=== PATIENT | female | born 1970 | race Caucasian/White ===

== ENCOUNTER → 2016-11-18 | Outpatient (REF) | payer BC | LOC: M SFHCWAGY 15:00 | PROVIDERS: ATTEND Nurse Practitioner Women's Health | DX: Z12.4 Encounter for screening for malignant neoplasm of cervix (principal) ==

== ENCOUNTER → 2016-11-18 | Outpatient (CLI) | payer BC ==
--- NOTE | 2016-11-18 15:29 | REPMRS ---
Patient History The patient states she had a clinical breast exam in 11/2016. Patient is nulliparous. Family history of colorectal cancer in maternal grandfather at age 50 or over and breast cancer in maternal grandmother at age 50 or over. Taking hormonal contraceptives for 12 years. Digital Woman Screen Mammo: November 18, 2016 - Exam #: [id number] Bilateral CC and MLO view(s) were taken. Technologist: Jennifer Torres, Technologist Prior study comparison: November 15, 2015, digital woman screen mammo performed at [facility]. November 14, 2014, digital woman screen mammo performed at [facility] [employer] [facility]. FINDINGS: The breast tissue is heterogeneously dense. This may lower the sensitivity of mammography. There has been no change in the appearance of the mammogram from the prior studies. There is a moderate amount of residual fibroglandular tissue which is fairly symmetric. There is no interval development of dominant mass, areas of architectural distortion, or clustered microcalcification typical of malignancy. ASSESSMENT: BI-RADS/ACR category 1 mammogram. Negative. Recommendation Routine screening mammogram in 1 year (for women over age 40). This mammogram was interpreted with the aid of an FDA-approved computer-aided dectection system. Electronically Signed By: Nilson Fair MD 11/18/16 [id number]
== END ==
LOC: M WHC 14:28
PROVIDERS: ATTEND Nurse Practitioner Women's Health
DX: Z12.31 Encounter for screening mammogram for malignant neoplasm of breast (principal)

== ENCOUNTER → 2018-04-14 | Outpatient (CLI) | payer BC | LOC: M WHC 10:48 | DX: Z12.31 Encounter for screening mammogram for malignant neoplasm of breast (principal) | CPT/HCPCS: 77067 ==

== ENCOUNTER → 2019-04-21 | Outpatient (REF) | payer BC ==
[2019-04-23 15:06] LABS: HPV HYBRID CAPTURE II Negative (Negative)
== END ==
LOC: M SFHCWAGY 11:32
PROVIDERS: ATTEND Nurse Practitioner Family
DX: Z12.4 Encounter for screening for malignant neoplasm of cervix (principal)
CPT/HCPCS: 87624; G0123

== ENCOUNTER → 2019-04-21 | Outpatient (CLI) | payer BC ==
--- NOTE | 2019-04-21 12:11 | REPMRS ---
Patient History The patient states she had a clinical breast exam in 04/2019. Patient is nulliparous. Family history of breast cancer at age 50 or over in maternal grandmother, colorectal cancer at age 50 or over in maternal grandfather. Taking hormonal contraceptives for 14 years. 3D TOMOSYNTHESIS WAS PERFORMED. Digital Woman Screen Mammo: April 21, 2019 - Exam #: [id number] Bilateral CC and MLO view(s) were taken. Technologist: Lelo Aguilar, Technologist Prior study comparison: April 14, 2018, bilateral digital woman screen mammo performed at [facility]. November 18, 2016, digital woman screen mammo performed at [facility] [employer] [facility]. FINDINGS: The breast tissue is heterogeneously dense. This may lower the sensitivity of mammography. There has been no change in the appearance of the mammogram from the prior studies. There is a moderate amount of residual fibroglandular tissue which is fairly symmetric. There is no interval development of dominant mass, areas of architectural distortion, or clustered microcalcification typical of malignancy. Assessment: BI-RADS/ACR category 1 mammogram. Negative Mammogram. Recommendation Routine screening mammogram in 1 year (for women over age 40). This mammogram was interpreted with the aid of an FDA-approved computer-aided dectection system. THE LIFETIME RISK OF BREAST CANCER IS 20.7%, THEREFORE SUPPLEMENTAL SCREENING MRI OF THE BREASTS IS RECOMMENDED IN 6 MONTHS. Electronically Signed By: Nilson Fair MD 04/21/19 [id number]
== END ==
LOC: M WHC 10:59
PROVIDERS: ATTEND Nurse Practitioner Family
DX: Z12.31 Encounter for screening mammogram for malignant neoplasm of breast (principal)

== ENCOUNTER → 2019-10-19 | Outpatient (CLI) | payer BC ==
[~2019-10-19] MED LIST: PROHANCE 279.3MG/ML 15ML VIAL (A9576) As Ordered ONE; PROHANCE 279.3MG/ML 5ML VIAL (A9576) As Ordered ONE
--- NOTE | 2019-10-19 16:11 | REP ---
Bilateral breast MRI study without and with IV gadolinium: History: High risk breast cancer screening. Comparison mammography April 21, 2019. Technique: Three Bess MRI imaging was performed with a dedicated breast coil. Axial, coronal, and sagittal T1 and T2-weighted scans were obtained with and without fat saturation in the usual fashion. The study includes dynamically acquired post gadolinium enhanced imaging subtraction imaging. Maximal intensity projection and multiplanar re-formation imaging is included as well. The study was interpreted with the aid of ExactTargetD, an FDA approved computer-aided detection (CAD) software program, on a dedicated breast MRI work station. The gadolinium enhancement dose is 20 ml of intravenous ProHance. Findings: There is a marked pattern of fibroglandular tissue bilaterally which corresponds with the mammographic pattern of increased density. There is no evidence of axillary lymphadenopathy on either side. No internal mammary adenopathy is seen. Incidental note is made of a 1.1 cm cyst in the left lobe of the liver adjacent to the gallbladder. No significant breast cystic change is seen. High-resolution pre and postcontrast images show no suspicious morphologic abnormality in either breast. Dynamically acquired sequential post contrast images show no suspicious area of enhancement and/or washout in either breast to suggest malignancy. Subtraction images are unremarkable. Impression: BIRADS category 1 negative findings. Repeat screening breast MRI study recommended in 1 year. Annual screening mammography should be continued as well. Electronically Signed by Walter Petit MD 10/19/2019 04:53 P
== END ==
LOC: M RAD 10:12
PROVIDERS: ATTEND Nurse Practitioner Family
DX: Z91.89 Other specified personal risk factors, not elsewhere classified (principal); R92.2 Inconclusive mammogram; K76.89 Other specified diseases of liver
CPT/HCPCS: A9576; C8908

== ENCOUNTER → 2020-05-21 | Outpatient (CLI) | payer BC ==
--- NOTE | 2020-05-21 15:33 | REPMRS ---
Patient History The patient states she had a clinical breast exam in 2019. Family history of breast cancer at age 50 or over in maternal grandmother, colorectal cancer at age 50 or over in maternal grandfather. Taking hormonal contraceptives for 14 years. Digital Woman Screen Mammo: May 21, 2020 - Exam #: [id number] Bilateral CC and MLO view(s) were taken. Technologist: Jo Montana, Technologist Prior study comparison: April 21, 2019, bilateral digital woman screen mammo performed at [facility]. April 14, 2018, bilateral digital woman screen mammo performed at [facility]. November 18, 2016, digital woman screen mammo performed at [facility]. FINDINGS: There are scattered fibroglandular densities. The Volpara volumetric breast density category is:B. There has been no change in the appearance of the mammogram from the prior studies. There is a mild amount of scattered fibroglandular density which is fairly symmetric. There is no interval development of dominant mass, architectural distortion, or grouped microcalcification suggestive of malignancy. 3-D tomosynthesis shows no additional findings. Assessment: BI-RADS/ACR category 1 mammogram. Negative Mammogram. Recommendation Breast MRI of both breasts in 6 months. Routine screening mammogram of both breasts in 1 year (for women over age 40). This patient's Lifetime Breast Cancer Risk is estimated at 20.4 %. Annual screening Breast MRI scanniing is recommended for patient's whose lifetime risk assessment is over 20%. This mammogram was interpreted with the aid of an FDA-approved computer-aided dectection system. Electronically Signed By: Gautam Petit MD 05/21/20 [id number]
== END ==
LOC: M WHC 14:37
PROVIDERS: ATTEND Nurse Practitioner Family
DX: Z12.31 Encounter for screening mammogram for malignant neoplasm of breast (principal); Z79.3 Long term (current) use of hormonal contraceptives

== ENCOUNTER → 2020-12-20 | Outpatient (CLI) | payer BC ==
[~2020-12-20] MED LIST changes: -PROHANCE 279.3MG/ML 15ML VIAL (A9576) As Ordered ONE; +PROHANCE 279.3MG/ML 15ML VIAL As Ordered ONE; -PROHANCE 279.3MG/ML 5ML VIAL (A9576) As Ordered ONE; +PROHANCE 279.3MG/ML 5ML VIAL As Ordered ONE
--- NOTE | 2020-12-20 16:11 | REP ---
INDICATION: HIGH RISK BREAST CA SCREENING,OT PERSONAL RISK FA. COMPARISON: Mammogram 05/21/2020, MRI 10/19/2019. TECHNIQUE: Three Bess MRI imaging was performed with a dedicated breast coil. Axial, coronal, and sagittal T1 and T2 weighted scans were obtained with and without fat saturation in the usual fashion. The study includes dynamically acquired post gadolinium-enhanced imaging with image subtraction. Maximum intensity projection and multi planar reformation imaging is included as well. This study is interpreted with the aid of TimeBridge, an FDA approved computer aided detection (CAD) software program, on a dedicated breast MRI workstation. The gadolinium enhancement dose is 20 mL of intravenous ProHance. FINDINGS: There is moderate fibroglandular tissue symmetrically bilaterally. No significant cystic change is seen. There is no axillary adenopathy. There is mild background parenchymal enhancement. There is no suspicious enhancing mass or morphologic abnormality. IMPRESSION: BI-RADS category 1, negative bilateral breast MRI. No suspicious enhancing mass or morphologic abnormality. Yearly supplemental screening MRI of the breasts is recommended for patients with an elevated lifetime risk of breast cancer of 20% or greater, in addition to annual screening mammography, staggered every 6 months. <Electronically signed by Nilson Fair > 12/20/20 2150
== END ==
LOC: M RAD 12:35
PROVIDERS: ATTEND Nurse Practitioner Family
DX: Z91.89 Other specified personal risk factors, not elsewhere classified (principal)
CPT/HCPCS: A9576; C8908

== ENCOUNTER → 2021-06-25 | Outpatient (REF) | payer BC | LOC: M SFHCWAGY 10:09 | PROVIDERS: ATTEND Nurse Practitioner Women's Health | DX: Z01.419 Encounter for gynecological examination (general) (routine) without abnormal findings (principal); Z77.9 Other contact with and (suspected) exposures hazardous to health ==

== ENCOUNTER → 2021-06-25 | Outpatient (CLI) | payer BC ==
--- NOTE | 2021-06-26 08:13 | REPMRS ---
Patient History The patient states she had a clinical breast exam on 06-25-2021. Patient is nulliparous. Family history of breast cancer at age 50 or over in maternal grandmother, colorectal cancer at age 50 or over in maternal grandfather. Taking hormonal contraceptives for 14 years. Patient states no breast complaints today. Patient has signed MRS History Sheet. Digital Woman Screen Mammo: June 25, 2021 - Exam #: [id number] Bilateral CC and MLO view(s) were taken. Technologist: Kiana Funk, Accounting Representative Prior study comparison: May 21, 2020, bilateral digital woman screen mammo performed at [facility]. April 21, 2019, bilateral digital woman screen mammo performed at [facility]. FINDINGS: There are scattered fibroglandular densities. Screening. Digital screening (2D) mammography was performed bilaterally in the CC and MLO projections. Additionally, breast tomosynthesis (3D mammography) was performed bilaterally in the CC and MLO projections. Todays exam was compared to the prior exam/exams. By history, the patient has no complaints of a palpable breast abnormality or other significant breast complaints. The Volpara volumetric breast density category is B, there are scattered areas of fibroglandular densities. The breasts are unchanged in size and shape. There are no lucho-soft tissue densities or spiculated masses. There is no internal architectural distortion. There are no suspicious lucho-calcific clusters. Skin thickening or nipple retraction is not present. IMPRESSION: BI-RADS Category 2- Benign Findings. There is no evidence of malignant alteration of the breasts. Followup examination recommended in one year. The lifetime Tyrer-Cuzick score is 19.7% This mammogram was read with the assistance of Sitesimon,an FDA approved computer aided detection system for mammography. Negative x-ray reports should not delay surgical consultation if a dominant or clinically suspicious mass is present. Not all breast cancers can be identified by mammography. Therefore, we recommend that you continue to perform regular breast self-examination and physical examination and then promptly contact your physician of any concerns or changes. Adenosis and dense breasts may obscure an underlying neoplasm. No significant changes when compared with prior studies. Assessment: BI-RADS/ACR category 2 mammogram. Benign Findings. Recommendation Routine screening mammogram of both breasts in 1 year. Electronically Signed By: Alexandr Ware MD 06/26/21 0815
== END ==
LOC: M WHC 15:45
PROVIDERS: ATTEND Nurse Practitioner Women's Health
DX: Z12.31 Encounter for screening mammogram for malignant neoplasm of breast (principal); Z80.3 Family history of malignant neoplasm of breast; Z80.0 Family history of malignant neoplasm of digestive organs

== ENCOUNTER → 2024-06-08 | Outpatient (CLI) | payer BC | LOC: M WHC 11:55 | PROVIDERS: ATTEND Nurse Practitioner Family | DX: Z12.31 Encounter for screening mammogram for malignant neoplasm of breast (principal); R92.323 Mammographic fibroglandular density, bilateral breasts ==